=== PATIENT | female | born 1935 | race Caucasian/White ===

== ENCOUNTER 2019-04-08 09:35 | Day surgery (SDC) | payer MEDICARE, BC ==
[2019-04-07 13:05] VITALS: BMI 20.9
[2019-04-08 10:44] LABS: Hemoglobin 11.3 g/dL (12.0-16.0)
[2019-04-08 11:05] LABS: Anion Gap 12 mmol/L (10-20); BUN (Urea Nitrogen) 37 mg/dL (9.8-20.1); Calc. Creatinine Clearance 24 mL/min (70-130); Calcium 8.3 mg/dL (7.8-10.44); Carbon Dioxide 25 mmol/L (23-31); Chloride 100 mmol/L (98-107); Estimated GFR-MDRD 36; Glucose 103 mg/dL (83-110); Potassium 3.9 mmol/L (3.5-5.1); Sodium 133 mmol/L (136-145)
[2019-04-08] MEDS ORDERED: Lidocaine 1% w/Epinephrine 1:100K 20 ML VIAL ONE (11:41)
[2019-04-08] MEDS ORDERED: Midazolam HCl 2 mg/2 ml Vial ONE (12:14)
[2019-04-08] MEDS ORDERED: Fentanyl 100 MCG/2 ML VIAL ONE (12:14)
[2019-04-08] MEDS ORDERED: Bacitracin Zinc Ointment 30 gm TUBE ONE (12:34)
--- NOTE | 2019-04-09 11:36 | OP ---
DATE OF PROCEDURE: 04/08/2019 PREOPERATIVE DIAGNOSIS: Left temporal arteritis. POSTOPERATIVE DIAGNOSIS: Left temporal arteritis. PROCEDURE PERFORMED: Biopsy of left temporal artery. ESTIMATED BLOOD LOSS: 0 mL. COMPLICATIONS: None. ANESTHESIA: IV sedation with local. DESCRIPTION OF PROCEDURE: The patient was taken to operating room and placed supine on the table. IV sedation was obtained by the Anesthesia Staff. A small incision was made over the left temporal artery and a 2 cm piece segment of the left temporal artery was then suture ligated and sent for pathological analysis. The wound was then closed using Monocryl stitches and then chromic gut stitches on the skin. The patient tolerated the procedure well. Job ID: [id number]
--- NOTE | 2019-04-10 08:11 | EKG ---
Test Reason : PREOP Blood Pressure : / mmHG Vent. Rate : 059 BPM Atrial Rate : 059 BPM P-R Int : 124 ms QRS Dur : 128 ms QT Int : 434 ms P-R-T Axes : 048 -46 006 degrees QTc Int : 429 ms Sinus bradycardia with with premature ventricular contraction Right bundle branch block Left anterior fascicular block Bifascicular block Abnormal ECG No previous ECGs available Confirmed by DR. Klaudia TY ([id number]) on 04/10/2019 8:10:43 AM Referred By: YESENIA Confirmed By:DR. Klaudia TY
== END 2019-04-08 13:51 | disposition home or self-care (01) ==
LOC: SDC 09:35
PROVIDERS: ATTEND Otolaryngology Plastic Surgery within the Head & Neck
PROC: 03BT0ZX Excision of Left Temporal Artery, Open Approach, Diagnostic (ICD-10-PCS; principal; 2019-04-08)
DX: M31.6 Other giant cell arteritis (principal); I10 Essential (primary) hypertension; Z86.73 Personal history of transient ischemic attack (TIA), and cerebral infarction without residual deficits; Z79.51 Long term (current) use of inhaled steroids; Z79.899 Other long term (current) drug therapy
CPT/HCPCS: 36415; 80048; 85014; 85018; 88305; 88313; 93005; 93010; J2001; J2250; J3010